=== PATIENT | female | born 1970 | race Caucasian/White ===

== ENCOUNTER 2018-03-23 07:44 | Emergency (ER) | END 2018-03-23 11:40 | disposition home or self-care (01) ==

== ENCOUNTER 2018-09-28 10:19 | Emergency (ER) | payer BC, OTHER ==
[~2018-09-28] VITALS: Ht 167.6 cm; Wt 101.6 kg
[~2018-09-28 10:19] MED LIST: ALBU18HF INHALATION; AZIT250T PO; CHLO15MO MM; DOCU-144 PO; GUAI5SYR2 PO; HYDR-3498 PO; HYDR25SU24 PR; IBUP-1542 PO; NAPR-985 PO; OMEP20CA9 PO; POLY17PO6 PO; PRED20TA PO; TRAM50TA PO
[2018-09-28 10:31] VITALS: Ht 167.6 cm; Wt 101.6 kg
[2018-09-28] MEDS ORDERED: BELLADONNA/PHENOBARBITAL TAB PO STA (11:26)
[2018-09-28] MEDS ORDERED: LIDOCAINE/MYLANTA 40 ML BTL PO STA (11:26)
[2018-09-28] MEDS ORDERED: LIDOCAINE 2% VISC 15 ML CUP PO ONE (12:30)
[2018-09-28] MEDS ORDERED: ONDANSETRON 4 MG INJ IV STA (14:00)
[2018-09-28] MEDS ORDERED: morphine 4 MG/ML VIAL IV STA (14:00)
[2018-09-28 14:11] VITALS: BP 113/76; PULSE 74; RESP 18
--- NOTE | 2018-09-28 14:28 | ERD ---
ER Documentation Chief Complaint Chief Complaint Epigastric pain HPI This is a 48-year-old female who is complaining of epigastric pain for 7 days. She says she has a burning sensation in the epigastrium without radiation. No chest pain or shortness of breath. No back pain dysuria hematuria no nausea vomiting diarrhea she is having some constipation. The patient has had her gallbladder removed. She does state that she has been drinking an excessive amount of fresh squeezed orange juice daily ROS All systems reviewed and are negative except as per history of present illness. Medications Home Meds Active Scripts Ibuprofen* (Motrin*) 600 Mg Tab, 600 MG PO Q6, #30 TAB Prov:LATASHA POWELL PA-C 03/23/18 Guaifenesin-Dextromethorphan* (Robitussin* DM) 100MG/10MG/5ML Syrup, 10 ML PO Q6H PRN for COUGH for 5 Days, ML Prov:LATASHA POWELL PA-C 03/23/18 Albuterol Sulfate* (Ventolin HFA*) 18 Gm Hfa.aer.ad, 2 PUFF INHALATION Q4H, #1 INHALER Prov:LATASHA POWELL PA-C 03/23/18 Prednisone* (Prednisone*) 20 Mg Tab, 40 MG PO DAILY for 4 Days, TAB Prov:LATASHA POWELL PA-C 03/23/18 Azithromycin* (Zithromax*) 250 Mg Tablet, 250 MG PO .ZPACK DIRECTED, #6 TAB TAKE 500 MG (2 TABS) THE FIRST DAY THEN 250 MG (1 TAB) DAYS 2-5 Prov:LATASHA POWELL PA-C 03/23/18 Naproxen* (Naprosyn*) 500 Mg Tablet, 500 MG PO BID PRN for PAIN AND/OR INFLAMMATION, #30 TAB Prov:ERIKA MODI PA-C 08/18/16 Ibuprofen* (Motrin*) 600 Mg Tab, 600 MG PO Q6, #30 TAB Prov:BRANDON NEAL 07/07/16 Omeprazole* (Prilosec*) 20 Mg Capsule.dr, 20 MG PO DAILY, #30 CAP Prov:KAMILLE HENSLEY NP 12/21/15 Polyethylene Glycol* (Miralax*) 17 Gm Powd.pack, 17 GM PO DAILY, #7 Prov:KAMILLE HENSLEY NP 12/21/15 Docusate Sodium* (Colace*) 100 Mg Capsule, 100 MG PO TID, #30 CAP Prov:KAMILLE HENSLEY CAREER SPECIALIST 12/21/15 Hydrocortisone Acetate* (Anusol-HC*) 25 Mg/Supp.rect Supp.rect, 1 SUPP NE HS, #12 SUPP.RECT Prov:KAMILLE HENSLEY CAREER SPECIALIST 12/21/15 Tramadol Hcl* (Ultram*) 50 Mg Tablet, 50 MG PO Q6H PRN for PAIN, #20 TAB Prov:PAULINA LUNA DO 12/06/15 Chlorhexidine Gluconate* (Peridex*) 480 Ml Mouthwash, 15 ML MM BID, #120 ML Prov:AVERY LUNASTTRAVIS Yeager DO 12/06/15 Hydrocodone Bit-Acetaminophen* ([place]*) 5-325 Mg Tab, 1 TAB PO Q6 PRN for PAIN, #10 TAB Prov:SALMA SALES PA-C 07/16/15 Reported Medications Hydrocodone Bit-Acetaminophen* (Hydrocodone-APAP*) 5-325 Tablet, 1 TAB PO Q4H PRN for PAIN LEVEL 1-5, TAB 11/09/14 Allergies Allergies: Coded Allergies: No Known Allergy (Unverified , 03/23/18) PMhx/Soc History of Surgery: Yes (CHOLECYSTECTOMY , section, left hand surgery) Anesthesia Reaction: No Hx Neurological Disorder: No Hx Respiratory Disorders: No Hx Cardiac Disorders: No Hx Psychiatric Problems: No Hx Miscellaneous Medical Probl: Yes (gallstones, use eye drops daily) Hx Alcohol Use: No Hx Substance Use: No Hx Tobacco Use: No Smoking Status: Never smoker FmHx Family History: No coronary disease Physical Exam Vitals Vital Signs Date Temp Pulse Resp B/P (MAP) Pulse Ox O2 O2 Flow FiO2 Time Delivery Rate 09/28/18 74 18 113/76 99 Room Air 14:11 (88) 09/28/18 72 15 98/56 (70) 100 Room Air 11:30 09/28/18 98.6 74 20 123/77 100 10:31 (92) Physical Exam Const: Well-developed, well-nourished Head: Atraumatic, normocephalic Eyes: Normal Conjunctiva, PERRLA, EOMI, normal sclera, no nystagmus ENT: Normal External Ears, Nose and Mouth, moist mucus membranes. Neck: Full range of motion. No meningismus, no lymphadenopathy. Resp: Clear to auscultation bilaterally, no wheezing, rhonchi, rales Cardio: Regular rate and rhythm, no murmurs, S1 S2 present Abd: Soft, mild to moderate epigastric tenderness, non distended. Normal bowel sounds, no guarding or rebound, no pulsitile abdominal masses or bruits Skin: No petechiae or rashes, no ecchymosis , no maculopapular rash Back: No midline or flank tenderness Ext: No cyanosis, or edema, FROM x 4, normal inspection, ne urovascularly intact x 4 Neur: Awake and alert, STR 5/5 x 4, sensation intact x 4, no focal fi ndings, cerebellum intact Psych: Normal Mood and Affect Result Diagram: 09/28/18 1246 09/28/18 1246 Results 24 hrs Laboratory Tests Test 09/28/18 12:46 09/28/18 13:02 White Blood Count 7.0 10^3/ul Red Blood Count 4.65 10^6/ul Hemoglobin 11.8 g/dl Hematocrit 37.9 % Mean Corpuscular Volume 81.5 fl Mean Corpuscular Hemoglobin 25.4 pg Mean Corpuscular Hemoglobin Concent 31.1 g/dl Red Cell Distribution Width 14.7 % Platelet Count 229 10^3/UL Mean Platelet Volume 11.7 fl Immature Granulocytes % 0.100 % Neutrophils % 56.0 % Lymphocytes % 34.1 % Monocytes % 5.9 % Eosinophils % 2.7 % Basophils % 1.2 % Nucleated Red Blood Cells % 0.0 /100WBC Immature Granulocytes # 0.010 10^3/ul Neutrophils # 3.9 10^3/ul Lymphocytes # 2.4 10^3/ul Monocytes # 0.4 10^3/ul Eosinophils # 0.2 10^3/ul Basophils # 0.1 10^3/ul Nucleated Red Blood Cells # 0.0 10^3/ul Sodium Level 142 mmol/L Potassium Level 4.4 mmol/L Chloride Level 102 mmol/L Carbon Dioxide Level 30 mmol/L Anion Gap 10 Blood Urea Nitrogen 13 mg/dl Creatinine 0.62 mg/dl Est Glomerular Filtrat Rate mL/min > 60 mL/min Glucose Level 93 mg/dl Calcium Level 9.6 mg/dl Total Bilirubin 0.1 mg/dl Direct Bilirubin 0.00 mg/dl Indirect Bilirubin 0.1 mg/dl Aspartate Amino Transf (AST/SGOT) 19 IU/L Alanine Aminotransferase (ALT/SGPT) 17 IU/L Alkaline Phosphatase 83 IU/L Total Protein 7.3 g/dl Albumin 4.1 g/dl Globulin 3.20 g/dl Albumin/Globulin Ratio 1.28 Lipase 61 U/L POC Beta HCG, Qualitative NEGATIVE Current Medications Medications Dose Sig/Rob Start Time Status Last (Trade) Ordered Route PRN Stop Time Admin Dose Reason Admin 40 ml ONCE STAT 09/28/18 DC 09/28/18 Miscellaneous PO 11:26 11:40 Medication 09/28/18 11:28 (Gi Cocktail (2)) Belladonna/ 2 tab ONCE STAT 09/28/18 DC 09/28/18 Phenobarbital PO 11:26 11:40 () 09/28/18 11:28 Lidocaine 15 ml ONCE ONCE 09/28/18 DC 09/28/18 (Xylocaine PO 12:30 12:22 (Viscous)) 09/28/18 12:31 Morphine 4 mg ONCE STAT 09/28/18 DC 09/28/18 Sulfate IV 14:00 14:07 (morphine) 09/28/18 14:02 Ondansetron 4 mg ONCE STAT 09/28/18 DC 09/28/18 HCl (Zofran IV 14:00 14:07 Inj) 09/28/18 14:02 Procedures/MDM Ordering MD: PAULINA LUNA DO Location: E/R Room/Bed: PROCEDURE: CT abdomen and pelvis without contrast. CLINICAL INDICATION: Abdominal Pain TECHNIQUE: CT scan of the abdomen and pelvis without contrast was performed and is reconstructed at 2.5 mm contiguous axial intervals from the dome of the diaphragm to the inferior pubic rami.. The patient was scanned without intravenous contrast. Sagittal and coronal reformatted images were obtained from the axial source images. The calculated radiation dose measures 23 mGy centimeters. The CTDI measures 1434 mGy. Individualized dose optimization technique was used for the performance of this exam. This included 1. Automated exposure control. 2. Adjustment of the mA and / or kV according to the patient's size. 3. Use of iterative reconstructed technique. COMPARISON: CT abdomen pelvis July 15, 2015 FINDINGS: The lung bases are clear of any infiltrate or nodule. No effusion is seen. The liver is of normal size, contour and attenuation with no mass or ductal dilatation. Gallbladder has been removed. No splenic, adrenal or pancreatic abnormalities present. Kidneys are of normal size and contour. There is a right duplicated renal collecting system. No hydronephrosis, calculus or masses seen. Ureters are of normal course and caliber with no stone. No bladder mass or stone is present. Uterus appears normal. No adnexal masses seen. There is no aneurysm. No adenopathy is present. No bowel mass or obstruction is present. The appendix is normal. No phlegmon, ascites or pneumoperitoneum is visualized. There is L4-L5 degenerative disc narrowing. IMPRESSION: No evidence of urolithiasis, obstructive uropathy, diverticulitis or appendicitis. Cholecystectomy. L4-L5 degenerative disc disease . .Jitendra Talley MD, MD Date Time Electronically viewed and signed by .Jitendra Talley MD, MD on 09/28/2018 13:40 .A/ CC: PAULINA LUNA DO [id number] EKG: Rate/Rhythm: [Normal Sinus Rhythm,NL intervals] QRS, ST, QT: NORMAL NE, QRS, QT] Impression: [NORMAL EKG] The patient is likely having some type of gastric irritation from drinking so much acidic orange juice. Discussed with her to stop doing this and to try drinking some aloe vera juice to heal the gastric lining I will provide her with some omeprazole and pain medication. Cardiac workup is negative I do not feel like this is cardiac in nature as she is having some postprandial worsening of pain on further questioning and epigastric burning consistent with a gastric issue Patient feels much better at this time, and vital signs are normal, symptoms have improved. I did give strict instructions to return to the ED if symptoms continue or worsen, patient will otherwise follow-up with primary care physician. Patient understood instructions and agreed to plan. Disclaimer: Inadvertent spelling and grammatical errors are likely due to EHR/dictation software use and do not reflect on the overall quality of patient care. Also, please note that the electronic time recorded on this note does not necessarily reflect the actual time of the patient encounter. Departure Diagnosis: Primary Impression: Epigastric pain Additional Impression: Gastritis Gastritis type: unspecified gastritis Chronicity: acute Gastritis bleeding: presence of bleeding unspecified Qualified Codes: K29.00 - Acute gastritis without bleeding Condition: Stable PAULINA LUNA DO Sep 28, 2018 14:28
[2018-09-28] MEDS ORDERED: OMEP40CA6 PO (14:51)
[2018-09-28] MEDS ORDERED: HYDR-3980 PO (14:52)
== END 2018-09-28 15:00 | disposition home or self-care (01) ==
LOC: E/R 10:19
DX: K29.00 Acute gastritis without bleeding (principal)
CPT/HCPCS: 36415; 74176; 80053; 81025; 83690; 84484; 85025; 93005; 96374; 96375; J2270; J2405; Z7502; Z7610

== ENCOUNTER 2019-03-13 20:24 | Emergency (ER) | payer BC, OTHER ==
[~2019-03-13] VITALS: Ht 162.6 cm; Wt 104.6 kg
[~2019-03-13 20:24] MED LIST changes: +HYDR-3980 PO; +OMEP40CA6 PO
[2019-03-13 20:28] VITALS: Ht 162.6 cm; Wt 104.6 kg
--- NOTE | 2019-03-14 00:01 | ERD ---
ER Documentation Chief Complaint Chief Complaint epi abd pain x 3 days HPI The patient is a 49-year-old male, presenting to the ER because of epigastric abdominal pain and substernal chest pain for the last 3 days intermittently, had similar symptoms previously. She denies fever, chills, neck pain, chest pain with vomiting/radiation/exertion/diaphoresis, dyspnea, vomiting, dizzy, diarrhea. She complains of sour taste in her mouth, denies smoking or drinking Past medical history: Chronic low back pain Past surgical history: Cholecystectomy, ROS All systems reviewed and are negative except as per history of present illness. Medications Home Meds Active Scripts Pantoprazole* (Protonix*) 40 Mg Tablet., 40 MG PO DAILY, #10 TAB Prov:JEANNA STALEY MD 03/14/19 Hydrocodone/Acetaminophen ([place] 10-325 Tablet) 1 Each Tablet, 1 TAB PO Q6H PRN for PAIN, #7 TAB Prov:AVERY LUNASTOLOS A. DO 09/28/18 Omeprazole* (Omeprazole*) 40 Mg Capsule., 40 MG PO DAILY, #14 CAP Prov:MAGDALENAOSAPOSTOLOS A. DO 09/28/18 Ibuprofen* (Motrin*) 600 Mg Tab, 600 MG PO Q6, #30 TAB Prov:LATASHA POWELL PA-C 03/23/18 Guaifenesin-Dextromethorphan* (Robitussin* DM) 100MG/10MG/5ML Syrup, 10 ML PO Q6H PRN for COUGH for 5 Days, ML Prov:LATASHA POWELL PA-C 03/23/18 Albuterol Sulfate* (Ventolin HFA*) 18 Gm Hfa.aer.ad, 2 PUFF INHALATION Q4H, #1 INHALER Prov:LATASHA POWELL PA-C 03/23/18 Prednisone* (Prednisone*) 20 Mg Tab, 40 MG PO DAILY for 4 Days, TAB Prov:LATASHA POWELL PA-C 03/23/18 Azithromycin* (Zithromax*) 250 Mg Tablet, 250 MG PO .ShwethaPACK DIRECTED, #6 TAB TAKE 500 MG (2 TABS) THE FIRST DAY THEN 250 MG (1 TAB) DAYS 2-5 Prov:LATASHA POWELL PA-C 03/23/18 Naproxen* (Naprosyn*) 500 Mg Tablet, 500 MG PO BID PRN for PAIN AND/OR INFLAMMATION, #30 TAB Prov:ERIKA MODI PA-C 08/18/16 Ibuprofen* (Motrin*) 600 Mg Tab, 600 MG PO Q6, #30 TAB Prov:BRANDON NEAL 07/07/16 Omeprazole* (Prilosec*) 20 Mg Capsule.dr, 20 MG PO DAILY, #30 CAP Prov:KAMILLE HENSLEY APPLICATIONS DEVELOPMENT ANALYST 12/21/15 Polyethylene Glycol* (Miralax*) 17 Gm Powd.pack, 17 GM PO DAILY, #7 Prov:KAMILLE HENSLEY NP 12/21/15 Docusate Sodium* (Colace*) 100 Mg Capsule, 100 MG PO TID, #30 CAP Prov:KAMILLE HENSLEY APPLICATIONS DEVELOPMENT ANALYST 12/21/15 Hydrocortisone Acetate* (Anusol-HC*) 25 Mg/Supp.rect Supp.rect, 1 SUPP VT HS, #1 2 SUPP.RECT Prov:KAMILLE HENSLEY APPLICATIONS DEVELOPMENT ANALYST 12/21/15 Tramadol Hcl* (Ultram*) 50 Mg Tablet, 50 MG PO Q6H PRN for PAIN, #20 TAB Prov:PAULINA LUNA DO 12/06/15 Chlorhexidine Gluconate* (Peridex*) 480 Ml Mouthwash, 15 ML MM BID, #120 ML Prov:PAULINA LUNA DO 12/06/15 Hydrocodone Bit-Acetaminophen* ([place]*) 5-325 Mg Tab, 1 TAB PO Q6 PRN for PAIN, #10 TAB Prov:SALMA SALES PA-C 07/16/15 Reported Medications Hydrocodone Bit-Acetaminophen* (Hydrocodone-APAP*) 5-325 Tablet, 1 TAB PO Q4H PRN for PAIN LEVEL 1-5, TAB 11/09/14 Allergies Allergies: Coded Allergies: No Known Allergy (Unverified , 03/23/18) PMhx/Soc History of Surgery: Yes (CHOLECYSTECTOMY , section, left hand surgery) Anesthesia Reaction: No Hx Neurological Disorder: No Hx Respiratory Disorders: No Hx Cardiac Disorders: No Hx Psychiatric Problems: No Hx Miscellaneous Medical Probl: Yes (gallstones, use eye drops daily) Hx Alcohol Use: No Hx Substance Use: No Hx Tobacco Use: No Physical Exam Vitals Vital Signs Date Temp Pulse Resp B/P (MAP) Pulse Ox O2 O2 Flow FiO2 Time Delivery Rate 03/14/19 98.0 74 18 140/70 96 Room Air 02:48 (93) 03/13/19 97.7 73 18 141/74 96 20:28 (96) Physical Exam Const: No acute distress. Head: Atraumatic. Eyes: Normal Conjunctiva. ENT: Normal External Ears, Nose and Mouth. Neck: Full range of motion. No meningismus. Resp: Clear to auscultation bilaterally. Cardio: Regular rate and rhythm. Abd: Soft, non distended, normal bowel sounds, mild epigastric tenderness, no rigidity/rebound/CVA tenderness Skin: No petechiae or rashes. Back: No midline or flank tenderness. Ext: No cyanosis, or edema. Neur: Awake and alert. No focal deficit Psych: Normal Mood and Affect. Result Diagram: 03/14/19 0000 03/14/19 0000 Results 24 hrs Laboratory Tests Test 03/14/19 00:00 03/14/19 00:13 03/14/19 00:17 White Blood Count 10.1 10^3/ul Red Blood Count 4.70 10^6/ul Hemoglobin 11.8 g/dl Hematocrit 37.9 % Mean Corpuscular Volume 80.6 fl Mean Corpuscular Hemoglobin 25.1 pg Mean Corpuscular 31.1 g/dl Hemoglobin Concent Red Cell Distribution Width 15.2 % Platelet Count 246 10^3/UL Mean Platelet Volume 11.2 fl Immature Granulocytes % 0.400 % Neutrophils % 60.9 % Lymphocytes % 30.2 % Monocytes % 5.2 % Eosinophils % 2.5 % Basophils % 0.8 % Nucleated Red Blood Cells % 0.0 /100WBC Immature Granulocytes # 0.040 10^3/ul Neutrophils # 6.2 10^3/ul Lymphocytes # 3.1 10^3/ul Monocytes # 0.5 10^3/ul Eosinophils # 0.3 10^3/ul Basophils # 0.1 10^3/ul Nucleated Red Blood Cells # 0.0 10^3/ul Sodium Level 141 mmol/L Potassium Level 4.2 mmol/L Chloride Level 103 mmol/L Carbon Dioxide Level 29 mmol/L Anion Gap 9 Blood Urea Nitrogen 15 mg/dl Creatinine 0.62 mg/dl Est Glomerular Filtrat Rate mL/min > 60 mL/min Glucose Level 87 mg/dl Calcium Level 9.5 mg/dl Total Bilirubin 0.3 mg/dl Direct Bilirubin 0.00 mg/dl Indirect Bilirubin 0.3 mg/dl Aspartate Amino Transf (AST/SGOT) 21 IU/L Alanine 18 IU/L Aminotransferase (ALT/SGPT) Alkaline Phosphatase 96 IU/L Troponin I < 0.012 ng/ml Total Protein 7.4 g/dl Albumin 4.1 g/dl Globulin 3.30 g/dl Albumin/Globulin Ratio 1.24 Lipase 100 U/L Bedside Urine pH (LAB) 6.5 Bedside Urine Protein (LAB) Negative Bedside Urine Glucose (UA) Negative Bedside Urine Ketones (LAB) Negative Bedside Urine Blood Trace-intact Bedside Urine Nitrite (LAB) Negative Bedside Urine Leukocyte Esterase Negative (L POC Beta HCG, Qualitative NEGATIVE Current Medications Medications Dose Sig/Rob Start Time Status Last (Trade) Ordered Route PRN Stop Time Admin Dose Reason Admin Famotidine 20 mg ONCE ONCE 03/14/19 DC 03/14/19 (Pepcid Iv) IV 00:30 00:43 03/14/19 00:31 Procedures/MDM EKG: Read by emergency physician Rate/Rhythm: Normal Sinus Rhythm 67 beats/min QRS, ST, T-waves: No ST elevation, no T inversion, low voltage Impression: Abnormal EKG MEDICAL MAKING DECISION: The patient is a 49-year-old female, presenting with epigastric abdominal pain of unclear etiology, treated with Pepcid IV with good response, is above outpatient follow-up The differential diagnoses considered include but are not limited to choledocholithiasis, cholangitis, pancreatitis, hepatitis, gastritis, peptic ulcer disease, gastric ulcer, appendicitis, cystitis, diverticulitis, partial small bowel obstruction, ACS. Departure Diagnosis: Primary Impression: Abdominal pain Additional Impression: Anemia Condition: Good Comments She was discharged with Protonix I discussed the findings with the patient. I advised the patient to follow-up with the primary physician in about 1-2 days for reevaluation and referral to gastroenterology for endoscopy, sooner if needed and return if any concern. Disclaimer: Inadvertent spelling and grammatical errors are likely due to EHR/dictation software use and do not reflect on the overall quality of patient care. Also, please note that the electronic time recorded on this note does not necessarily reflect the actual time of the patient encounter. JEANNA STALEY MD Mar 14, 2019 00:01
[2019-03-14] MEDS ORDERED: FAMOTIDINE 20 MG INJ IV ONE (00:30)
[2019-03-14] MEDS ORDERED: PANT40TA3 PO (02:45)
[2019-03-14 02:48] VITALS: BP 140/70; PULSE 74; RESP 18
== END 2019-03-14 02:48 | disposition home or self-care (01) ==
LOC: E/R 20:24
DX: D64.9 Anemia, unspecified (principal)
CPT/HCPCS: 36415; 80053; 81003; 81025; 83690; 84484; 85025; 93005; 96374; Z7502; Z7610